=== PATIENT | female | born 1980 | race Two or more races ===

== ENCOUNTER 2019-03-16 12:36 | Inpatient (IN) | payer OTHER ==
[~2019-03-16] VITALS: Ht 167.6 cm; Wt 57.6 kg
== END 2019-04-03 16:52 | disposition home or self-care (01) | DRG 331 ==
LOC: SURG 03-25 09:00 → O/R 03-31 05:35 → SURH 03-31 05:35 → SURG 03-31 09:00 → SURH 03-31 13:27 → SURG 03-31 15:45 → MEDI 03-31 16:13 → SURH 03-31 17:33
PROVIDERS: ADMIT Colon & Rectal Surgery
PROC: 07TB4ZZ Resection of Mesenteric Lymphatic, Percutaneous Endoscopic Approach (ICD-10-PCS; 2019-03-31)
PROC: 0DTU4ZZ Resection of Omentum, Percutaneous Endoscopic Approach (ICD-10-PCS; 2019-03-31)
PROC: 0DTF4ZZ Resection of Right Large Intestine, Percutaneous Endoscopic Approach (ICD-10-PCS; principal; 2019-03-31 15:45)
DX: D12.2 Benign neoplasm of ascending colon (principal); R59.0 Localized enlarged lymph nodes; H91.3 Deaf nonspeaking, not elsewhere classified

== ENCOUNTER 2019-07-07 02:02 | Inpatient (IN) | payer OTHER ==
[~2019-07-07] VITALS: Ht 152.4 cm; Wt 54.4 kg
[2019-07-07] MEDS ORDERED: INTESTINEX680 M1 PO (02:44)
== END 2019-08-10 19:45 | disposition home or self-care (01) | DRG 393 ==
LOC: ER 02:02 → SURH 09:23 → SEC-K 09:23 → SURH 10:03
PROVIDERS: ADMIT Colon & Rectal Surgery
PROC: 0DH67UZ Insertion of Feeding Device into Stomach, Via Natural or Artificial Opening (ICD-10-PCS; 2019-07-07)
PROC: 3E0G76Z Introduction of Nutritional Substance into Upper GI, Via Natural or Artificial Opening (ICD-10-PCS; 2019-07-07)
PROC: 02HV33Z Insertion of Infusion Device into Superior Vena Cava, Percutaneous Approach (ICD-10-PCS; 2019-07-07)
PROC: BW21Y0Z Computerized Tomography (CT Scan) of Abdomen and Pelvis using Other Contrast, Unenhanced and Enhanced (ICD-10-PCS; 2019-07-08)
PROC: 0W9F30Z Drainage of Abdominal Wall with Drainage Device, Percutaneous Approach (ICD-10-PCS; 2019-07-09)
PROC: 3E0436Z Introduction of Nutritional Substance into Central Vein, Percutaneous Approach (ICD-10-PCS; 2019-07-09)
PROC: 8E0ZXY6 Isolation (ICD-10-PCS; 2019-07-09)
PROC: BW21ZZZ Computerized Tomography (CT Scan) of Abdomen and Pelvis (ICD-10-PCS; 2019-07-14)
PROC: 0W9F30Z Drainage of Abdominal Wall with Drainage Device, Percutaneous Approach (ICD-10-PCS; 2019-07-22)
PROC: 0W9B30Z Drainage of Left Pleural Cavity with Drainage Device, Percutaneous Approach (ICD-10-PCS; 2019-07-25)
PROC: 0DB68ZX Excision of Stomach, Via Natural or Artificial Opening Endoscopic, Diagnostic (ICD-10-PCS; principal; 2019-07-31)
DX: K66.1 Hemoperitoneum (principal); K63.1 Perforation of intestine (nontraumatic); E44.0 Moderate protein-calorie malnutrition; R18.8 Other ascites; J90 Pleural effusion, not elsewhere classified; J98.11 Atelectasis; A04.8 Other specified bacterial intestinal infections; B37.0 Candidal stomatitis; C18.2 Malignant neoplasm of ascending colon; K25.3 Acute gastric ulcer without hemorrhage or perforation; D62 Acute posthemorrhagic anemia; B96.1 Klebsiella pneumoniae [K. pneumoniae] as the cause of diseases classified elsewhere; H91.3 Deaf nonspeaking, not elsewhere classified; K52.89 Other specified noninfective gastroenteritis and colitis

== ENCOUNTER 2020-03-25 05:30 | Day surgery (SDC) | payer OTHER ==
[~2020-03-25 05:30] MED LIST: INTESTINEX680 M1 PO
== END 2020-03-25 10:00 | disposition home or self-care (01) ==
LOC: AMB-ENDOS 05:30
PROVIDERS: ATTEND Colon & Rectal Surgery
DX: D13.1 Benign neoplasm of stomach (principal); K62.89 Other specified diseases of anus and rectum; K64.1 Second degree hemorrhoids; K44.9 Diaphragmatic hernia without obstruction or gangrene